=== PATIENT | male | born 2005 | race Caucasian/White ===

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

== ENCOUNTER → 2025-10-18 | Outpatient (CLI) | payer BC ==
[2025-10-19 12:21] LABS: Chlamydia Trachomatis Urine NOT DETECTED (NOT DETECT); Neisseria Gonorrhoea Urine NOT DETECTED (NOT DETECT)
== END | disposition home or self-care (01) ==
LOC: LAB SHORT 18:25 → LAB 18:25
PROVIDERS: Physician Assistant
DX: Z20.9 Contact with and (suspected) exposure to unspecified communicable disease (principal)
CPT/HCPCS: 87491; 87591

== ENCOUNTER → 2025-10-20 | Outpatient (CLI) | payer BC | LOC: LAB SHORT 18:15 → LAB 18:15 | DX: N48.9 Disorder of penis, unspecified (principal) | CPT/HCPCS: 86592 ==